=== PATIENT | male | born 2000 | race Caucasian/White ===

== ENCOUNTER 2021-05-17 11:24 | Emergency (ER) | payer OTHER, SELFPAY ==
--- NOTE | 2021-05-17 11:34 | ED.CHESTPAIN ---
HPI - Chest Pain General Chief Complaint: Chest Pain Stated Complaint: Chest Pain Time Seen by Provider: 05/17/21 11:35 Source: patient and RN notes reviewed History of Present Illness HPI narrative: Patient is a 20-year-old male who presents the urgent care with complaints of left-sided chest pain under the breast. Patient states that it started while driving this afternoon. Patient also reports of feeling a little queasy at the time . Patient denies of any constant chest pain at this time. Denies any shortness of breath. States that he has not taken anything for his pain that he came straight to the facility . Patient states he has a history of sinus arrhythmia and was seen by a [employer] worker which signed off on him years ago. Patient appears slightly anxious but otherwise no acute distress noted. No other acute complaints. Patient aware of the plan of care. . Some parts of this dictation were generated by voice recognition software and may contain typographical and/or grammatical inaccuracies. Related Data Allergies Allergy/AdvReac Type Severity Reaction Status Date / Time No Known Allergies Allergy Verified 11/12/20 08:30 Review of Systems Review of Systems: Narrative: CONSTITUTIONAL: Denies fever, chills, or sweats. EYES: Denies visual changes, redness, or discharge. ENT: Denies rhinorrhea, congestion, sore throat, or otalgia. CARDIOVASCULAR: Reports of left-sided chest pain without palpitations RESPIRATORY: Denies cough or dyspnea. GASTROINTESTINAL: Denies abdominal pain, nausea, vomiting, or diarrhea. GENITOURINARY: Denies dysuria or hematuria. SKIN: Denies rash or itching. MUSCULOSKELETAL: Denies back pain, joint pain, or myalgia. NEUROLOGIC: Denies headache, numbness, or weakness. All other systems reviewed are negative, except as documented in HPI. [facility] Family History Family History (Updated 11/12/20 @ 08:35 by Francisca Fuentes) Mother Rheumatoid arthritis Father Diabetes mellitus Social History Social History Smoking status: Never smoker Exam Narrative: Exam Narrative: GENERAL: This is a well-nourished, well-developed patient, in no apparent distress. HEAD: normocephalic, atraumatic. EYES: PERRL. Sclera clear/white. Vision is grossly intact. EARS: External ears normal NOSE: External nose normal with no obvious nasal discharge, nares without redness, no rhinorrhea. THROAT: Mucous membranes moist NECK: Neck supple CARDIOVASCULAR: Regular rate and rhythm without murmurs, gallops, or rubs. Nonreproducible substernal pain RESPIRATORY: Clear to auscultation. Breath sounds equal bilaterally. No wheezes, rales, or rhonchi. GASTROINTESTINAL: Abdomen soft, non-tender, nondistended. Bowel sounds are active. No hepato-splenomegaly, or palpable masses. No guarding. SKIN: warm, intact with no suspicious lesions or rash, good texture and turgor. NEURO: awake, alert, and oriented to person, place and time. There were no obvious focal neurologic abnormalities. EXTREMITIES: No clubbing, cyanosis, or edema. Course Vital Signs Vital signs: Vital Signs Temperature 96.8 F L 05/17/21 11:40 Pulse Rate 75 05/17/21 11:40 Respiratory Rate 16 05/17/21 11:40 Blood Pressure 144/69 H 05/17/21 11:40 Pulse Oximetry 97 05/17/21 11:40 Temperature 96.8 F L 05/17/21 11:40 Pulse Rate 75 05/17/21 11:40 Respiratory Rate 16 05/17/21 11:40 Blood Pressure 144/69 H 05/17/21 11:40 Pulse Oximetry 97 05/17/21 11:40 Reviewed-patient is informed that they may have pre-hypertension or hypertension based on a blood pressure reading in the department. I recommend the patient call the primary care provider listed on their discharge instructions or a physician of their choice this week to arrange follow-up for further evaluation of possible pre-hypertension or hypertension. MDM - Chest Pain MDM Narrative Medical decision making narrative: Discussed E
[2021-05-17 11:40] VITALS: BP 144/69; PULSE 75; RESP 16; TEMP 36; O2SAT 97
--- NOTE | 2021-05-17 11:42 | ECG_ITS ---
Measurements Intervals [place] Rate: 65 P: 38 SC: 147 QRS: 69 QRSD: 95 T: 49 QT: 377 QTc: 392 Interpretive Statements SINUS RHYTHM WITH SINUS ARRHYTHMIA INCOMPLETE RIGHT BUNDLE BRANCH BLOCK ST ELEVATION IN DIFFUSE LEADS, PROBABLY EARLY REPOLARIZATION BORDERLINE ECG Electronically Signed On 05-17-2021 12:29:17 CDT by Ahmet Burt D.O.
== END 2021-05-17 12:02 | disposition left against medical advice (07) ==
PROVIDERS: Emergency Provider Nurse Practitioner Family; PCP Internal Medicine
DX: R07.9 Chest pain, unspecified (principal)
CPT/HCPCS: 93005; 99213; G0463

== ENCOUNTER 2022-01-02 15:21 | Emergency (ER) | payer OTHER, SELFPAY ==
[2022-01-02 15:36] VITALS: BP 136/63; PULSE 95; RESP 20; TEMP 36.9; O2SAT 98
--- NOTE | 2022-01-02 16:21 | ED.ABDPAIN ---
HPI - Abdominal Pain General Chief Complaint: Abdominal Pain Stated Complaint: Chest Pain Time Seen by Provider: 01/02/22 16:05 Source: patient and RN notes reviewed Mode of arrival: ambulatory Limitations: no limitations History of Present Illness HPI narrative: Patient presents today because of 2-day history of epigastric pain and, burning . Patient states that during the day of onset he could, feel the acid come up and down. Pain increases when he swallows food or fluids. He currently rates his pain and discomfort 5/10. He has tried Tums and Zofran with mild relief. History of acid reflux several years ago for which he used to take Prilosec. He does not currently take an acid reducing medication. Denies any nausea or vomiting. Denies fever or recent illness. Denies shortness of breath. He does report increased burping and gas. MD elicited complaint: abdominal pain Related Data Home Medications Medication Instructions Recorded Confirmed doxycycline hyclate 100 mg PO BID 01/02/22 01/02/22 tretinoin 1 applic TOPICAL DAILY 01/02/22 01/02/22 Allergies Allergy/AdvReac Type Severity Reaction Status Date / Time No Known Allergies Allergy Verified 01/02/22 15:31 Review of Systems Review of Systems: CONSTITUTIONAL: Denies body aches, fever, chills, or sweats. EYES: Denies visual changes, redness, or discharge. ENT: Denies rhinorrhea, congestion, sore throat, or otalgia. CARDIOVASCULAR: Denies chest pain, palpitations, or edema. RESPIRATORY: Denies cough or dyspnea. GASTROINTESTINAL: Denies nausea, vomiting, or diarrhea.+ Epigastric pain GENITOURINARY: Denies dysuria or hematuria. SKIN: Denies rash, itching, or wounds. MUSCULOSKELETAL: Denies back pain, joint pain, or myalgia. NEUROLOGIC: Denies headache, numbness, tingling, or weakness. PSYCH: Denies depression or anxiety. [facility], [facility] Past Medical History Medical History (Updated 01/02/22 @ 16:28 by Tessa Lawton, YUNIER, OMI) History of gastroesophageal reflux (GERD) Family History Family History Mother Rheumatoid arthritis Father Diabetes mellitus Social History Social History Smoking status: Never smoker Comments At time of signature, I have reviewed and agree with nursing past medical, surgical, social and family history unless otherwise noted. Please see nursing chart for further information. There is no relevant family history pertinent to the presenting complaint Exam Narrative: GENERAL: Well-appearing, well-nourished, and in no acute distress. HEAD: Normocephalic, atraumatic. EYES: EOMI. No redness or drainage. Conjunctivae normal. ENT: Mucous membranes pink and moist. NECK: Normal AROM. Supple. No lymphadenopathy. CHEST: No respiratory distress. Clear to auscultation. HEART: Regular rate and rhythm. No murmur appreciated. Normal peripheral pulses. ABDOMEN: Soft, nontender, nondistended, normal active bowel sounds. EXTREMITIES: Normal range of motion. No edema. SKIN: Warm, dry, no rash. Capillary refill normal. Normal skin turgor. NEURO: No focal deficits. Alert and oriented x3. Gait steady. PSYCH: Normal affect. No signs of depression or anxiety. Course Course Level of Care: Express Care Visit Vital Signs Vital signs: Vital Signs Temperature 98.5 F 01/02/22 15:36 Pulse Rate 95 01/02/22 15:36 Respiratory Rate 20 01/02/22 15:36 Blood Pressure 136/63 01/02/22 15:36 Pulse Oximetry 98 01/02/22 15:36 Temperature 98.5 F 01/02/22 15:36 Pulse Rate 95 01/02/22 15:36 Respiratory Rate 20 01/02/22 15:36 Blood Pressure 136/63 01/02/22 15:36 Pulse Oximetry 98 01/02/22 15:36 Reviewed. Pt has been instructed to follow up with his PCP regarding his elevated blood pressure today. MDM - Abdominal Pain Differential Diagnosis Differential diagnosis: Likely abdominal pain and other (Gastritis,
== END 2022-01-02 16:31 | disposition home or self-care (01) ==
PROVIDERS: Emergency Provider Nurse Practitioner; PCP Internal Medicine
DX: K21.00 Gastro-esophageal reflux disease with esophagitis, without bleeding (principal)
CPT/HCPCS: 99213; G0463